=== PATIENT | female | born 1970 | race Hispanic/Latino ===

== ENCOUNTER 2025-02-19 09:50 | Emergency (ER) | payer BC, SELFPAY ==
[2025-02-19 09:53] VITALS: BP 105/68
[2025-02-19 10:58] VITALS: BP 125/78
[2025-02-19 11:00] VITALS: BP 121/76
--- NOTE | 2025-02-19 11:34 | ED.GENMED ---
History of Present Illness
General
Chief Complaint: Chest Pain
Source: patient
Time Seen by Provider: 02/19/25 10:59
History of Present Illness
History of Present Illness:
54-year-old female with past medical history of depression presenting to the emergency department for evaluation of left anterior chest wall pain that started around 11 PM last night rather acutely while to her daughter on the phone, noting the pain
is mostly present when laying on a certain side or taking a deep breath in, minimally noticeable at rest or when laying slightly upright or ambulating. There are no other associated symptoms although the patient does note recently being diagnosed
with a bacterial sinusitis, had been on Doxy for couple days with no improvement, switch to Augmentin on Tuesday by local urgent care. Patient does report improvement of her sinus based symptoms. Denies any fevers, chills, rigors, cough,
hemoptysis, chest pain, exertional dyspnea, orthopnea, lower extremity edema. No cigarette or tobacco use, no recent travel, no other risk factors for pulmonary embolism.
Past History
Past History
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
ED Past Surgical History: , Tonsilectomy and Other (Lasik surgery b/l eyes)
Social History
Tobacco: Non-smoker
Alcohol: None
Drug: None
Personal:
Living: with family
Employment: Employed
Family History
Family History: Negative Diabetes, Hypertension or Early CAD
Review of Systems
Review of Systems
All Other Systems: ROS reviewed and negative except as documented in HPI and ROS
Phy Exam
Physical Exam
Physical Exam:
GENERAL: Alert , in no apparent distress
HEAD: Normocephalic atraumatic
EYE: conjunctiva clear
NECK: Supple
ENT: o/p clr, mmm.
CARDIAC: Regular rate and rhythm
LUNGS: Clear breath sounds bilaterally, no acute respiratory distress, no wheezes/rales/rhonchi CHEST WALL:
No focal areas of tenderness, no rashes
NEUROLOGICAL: Alert and oriented
SKIN: Warm and dry, skin intact.
MUSCULOSKELETAL: well perfused. no edema
PSYCH: Normal and appropriate interaction.
Scores
Heart Failure Risk
Heart Failure Risk Score: Not Applicable
Heart Score for Chest Pain Patients
STEMI patient?: Not applicable
Withdrawal Assessment of Alcohol
Withdrawal Assessment Completed?: Not applicable
Course
Orders/Labs/Results
Orders:
Orders
02/19/25 09:57
Electrocardiogram (*1) Urgent
Reason for Study: Chest Pain
EKG- Treatment ONCE
02/19/25 11:27
Complete Blood Count/With Diff Urgent
Comprehensive Metabolic Panel Urgent
D-Dimer Urgent
Troponin I Urgent
02/19/25 12:25
CR Chest - 2 Views Urgent
Comment:
Reason For Exam: left sided pleurisy
Abnormal Lab Results
02/19/25
11:27
WBC 4.2 L 10^3/uL
(4.8-10.8)
MCH 32.2 H pg
(27.0-31.0)
MPV 10.8 H fL
(7.4-10.4)
Monocytes % 10.0 H %
(1.7-9.3)
BUN 20 H mg/dl
(7-17)
02/19/25 11:27
02/19/25 11:27
Vital Signs
Initial and Last Documented VS:
Initial Vital Signs
Temp Pulse Resp BP Pulse Ox
97.6 F 74 16 105/68 99
02/19/25 09:53 02/19/25 09:53 02/19/25 09:53 02/19/25 09:53 02/19/25 09:53
Last Documented Vital Signs
Temp Pulse Resp BP Pulse Ox
97.6 F 68 14 112/72 97
02/19/25 09:53 02/19/25 12:36 02/19/25 12:36 02/19/25 12:50 02/19/25 12:36
MDM/Problems Addressed
Differential Diagnosis Includes:
Pleurisy/costochondritis, pulmonary embolism, atypical ACS presentation, pneumonia
MDM/Problems Addressed:
54-year-old female presenting to the ER for evaluation after she developed a rather sudden onset of left-sided pleuritic type pain last night, no other symptoms associated. On arrival patient is overall very well-appearing, hemodynamically stable.
She has no risk factors for ACS nor PE. Given the sudden onset nature of the symptoms as well as location will obtain labs including D-dimer and troponin. EKG done in triage nonischemic. Will order imaging based off of D-dimer results.
Disposition pending.
*Radiology
Radiology exam reviewed: preliminary read by ED provider (normal CXR)
*Pulse Oximetry
Patient hypoxic: no
*EKG
Heart Rate: 75
Rate: normal
Rhythm: sinus
[place]: normal axis
Ischemia: no ischemia
*Clinical Project Leader Interpretation
Rate: normal
Rhythm: sinus
*Critical Care Note
Total Time (30-74mins, 75-104mins- exclusive of procedures): Not Applicable
Patient Management
Escalation/DeEscalation of care consider admission/obs:
Chest x-ray unremarkable. D-dimer negative. Patient remains hemodynamically stable. She has a mild leukopenia which is likely secondary to viral illness, already started antibiotics so we will have patient continue this. Patient aware of return
precautions.
ED Attending Note
-
Portions of this chart may have been created with voice recognition software.� Occasional wrong word or��sound alike� substitutions may have occurred due to the inherent limitations of voice recognition software.
Discharge Plan
Departure
Patient Disposition: Home (Routine Discharge)
Date of Disposition: 02/19/25
Time of Disposition: 12:43
Patient with high blood pressure during this ER visit?: No
Discharge Problem:
Pleurisy
Instructions: Costochondritis (DC)
Referrals:
Tiffanie Zacarias DO [Family Provider] -
Interventions
Interventions:
*Risk Screen - Suicide Last Done: 02/19/25 09:53
*General Assessment Last Done: 02/19/25 09:53
*Neglect/Abuse Screening Last Done: 02/19/25 09:53
*ED- Fall Risk Assessment Last Done: 02/19/25 11:09
*ED COVID-19 Vaccine History Last Done: 02/19/25 11:09
*Nursing Disposition Last Done: 02/19/25 12:57
ED- Cardiac Assessment Last Done: 02/19/25 11:09
Discharge Date and Time
Discharge Date/Time: 02/19/25 13:21
Print Language: AMHARIC
[2025-02-19 11:39] LABS: % Eosinophils 1.7 % (0-6); % Immature Granulocytes 0.2 % (0-0.5); % Lymphocytes 27.4 % (20.5-51.1); % Neutrophils 59.7 % (42.2-75.2); Absolute Eosinophils 0.1 10^3/uL (0-0.7); Absolute Lymphocytes 1.2 10^3/uL (1.2-3.4); Absolute Monocytes 0.4 10^3/uL (0.1-0.6); Absolute Neutrophils 2.5 10^3/uL (1.4-6.5); Hematocrit 41.3 % (37.0-47.0); Hemoglobin 13.8 g/dL (12.0-16.0); Mean Corp Hgb Conc. 33.4 g/dL (33.0-37.0); Mean Corpuscular Hgb 32.2 pg (27.0-31.0); Mean Corpuscular Volume 96.5 fL (81.0-99.0); Mean Platelet Volume 10.8 fL (7.4-10.4); Nucleated Red Blood Cells % 0 %; Platelet Count 194 10^3/uL (130-400); Red Blood Cell Count 4.28 10^6/uL (4.20-5.40); Red Cell Dist. Width 11.9 % (11.5-14.5); White Blood Cell Count 4.2 10^3/uL (4.8-10.8)
[2025-02-19 11:52] LABS: D-Dimer 0.35 ug/mlFEU (0.00-0.50)
[2025-02-19 12:00] VITALS: BP 122/71
[2025-02-19 12:06] LABS: Troponin I < 0.012 ng/ml
[2025-02-19 12:19] LABS: ALT (SGPT) 17 U/L (0-35); AST (SGOT) 32 U/L (14-36); Albumin 4.2 g/dl (3.5-5.0); Alkaline Phosphatase 70 U/L (38-126); Blood Urea Nitrogen 20 mg/dl (7-17); Calcium 9.2 mg/dl (8.4-10.2); Carbon Dioxide 30 mmol/L (22-30); Chloride 107 mmol/L (98-107); Glucose 85 mg/dl (70-99); Potassium 4.2 mmol/L (3.5-5.1); Sodium 142 mmol/L (135-145); Total Bilirubin 0.5 mg/dl (0.2-1.3); Total Protein 7.1 g/dl (6.3-8.2); eGFR > 60.00
[2025-02-19 12:50] VITALS: BP 112/72
== END 2025-02-19 13:21 | disposition home or self-care (01) ==
LOC: EMR 09:50
PROVIDERS: Physician Assistant Medical; EMERGENCY PHYSICIAN Emergency Medicine; FAMILY PHYSICIAN Family Medicine
DX: R07.89 Other chest pain (principal); Z82.49 Family history of ischemic heart disease and other diseases of the circulatory system
CPT/HCPCS: 99283; 71046; 80053; 84484; 85025; 85379; 93005